=== PATIENT | male | born 1960 | race Caucasian/White ===

== ENCOUNTER 2018-01-24 06:11 | Day surgery (SDC) | payer SELFPAY ==
[~2018-01-24] VITALS: Ht 188 cm; Wt 95.5 kg
[2018-01-24] VITALS (11 sets, daily range): BP systolic 77–119; BP diastolic 23–92; PULSE 51–119; TEMP 97.7
[2018-01-24] MEDS ORDERED: LOPRESSOR 225 MG/TAB PO (06:40)
[2018-01-24] MEDS ORDERED: ASPIRIN 81M81 MG/TA2 PO (06:40)
[2018-01-24] MEDS ORDERED: MULTI VITAMINS1 TAB PO (06:41)
[2018-01-24] MEDS ORDERED: XARELTO20 MG PO (06:41)
[2018-01-24] MEDS ORDERED: PROBIOTIC FORMU1 CAP PO (06:41)
[2018-01-24 07:29] LABS: POTASSIUM 4.9 mmol/L (3.4-5.0)
[2018-01-24 07:50] LABS: PROTHROMBIN TIME 22.9 SECONDS (9.7-12.8)
[2018-01-24 08:04] LABS: THYROID STIMULATING HORMONE 3.46 uIU/mL (0.465-4.680)
== END 2018-01-24 12:36 | disposition home or self-care (01) ==
LOC: COL.CAR 06:11
PROVIDERS: Internal Medicine Interventional Cardiology
DX: I48.0 Paroxysmal atrial fibrillation (principal); I48.92 Unspecified atrial flutter; I34.0 Nonrheumatic mitral (valve) insufficiency; I10 Essential (primary) hypertension; I83.813 Varicose veins of bilateral lower extremities with pain; I83.893 Varicose veins of bilateral lower extremities with other complications; G47.30 Sleep apnea, unspecified; Z79.01 Long term (current) use of anticoagulants
CPT/HCPCS: G9654; J2250; J2704

== ENCOUNTER 2018-04-11 12:08 | Day surgery (SDC) | payer SELFPAY ==
[~2018-04-11] VITALS: Ht 188.1 cm; Wt 81.8 kg
[~2018-04-11 12:08] MED LIST: ASPIRIN 81M81 MG/TA2 PO; LOPRESSOR 225 MG/TAB PO; MULTI VITAMINS1 TAB PO; PROBIOTIC FORMU1 CAP PO; XARELTO20 MG PO
[2018-04-11 12:58] LABS: INR 1.9 (0.8-3.0); PROTHROMBIN TIME 21.3 SECONDS (9.7-12.8)
[2018-04-11 12:59] LABS: POTASSIUM 5.1 mmol/L (3.4-5.0)
[2018-04-11 13:00] VITALS: BP 130/97; PULSE 103; TEMP 98.2
[2018-04-11 13:34] LABS: THYROID STIMULATING HORMONE 3.15 uIU/mL (0.465-4.680)
[2018-04-11] MEDS ORDERED: PACERONE200 MG PO (14:42)
[2018-04-11 15:10] VITALS: BP 94/58; PULSE 55; TEMP 97.5
[2018-04-11 15:25] VITALS: BP 115/78; PULSE 58
[2018-04-11 15:47] VITALS: BP 113/82; PULSE 57
[2018-04-11 15:55] VITALS: BP 133/88; PULSE 58
[2018-04-11 16:25] VITALS: BP 136/94; PULSE 59
== END 2018-04-11 17:10 | disposition home or self-care (01) ==
LOC: COL.CAR 12:08
PROVIDERS: Internal Medicine Interventional Cardiology
DX: I48.3 Typical atrial flutter (principal); I50.22 Chronic systolic (congestive) heart failure; R20.2 Paresthesia of skin; I10 Essential (primary) hypertension; G47.33 Obstructive sleep apnea (adult) (pediatric); I48.91 Unspecified atrial fibrillation; I34.0 Nonrheumatic mitral (valve) insufficiency
CPT/HCPCS: J2704; J7120

== ENCOUNTER 2020-03-06 10:45 | Day surgery (SDC) | payer MEDICAID ==
[2020-03-06] VITALS (11 sets, daily range): BP systolic 86–135; BP diastolic 39–90; PULSE 40–59; TEMP 98
[~2020-03-06] VITALS: Ht 188 cm; Wt 82.8 kg
[~2020-03-06 10:45] MED LIST changes: -LOPRESSOR 225 MG/TAB PO; +PACERONE100 MG PO; +TOPROL XL 25MG25 MG PO
[2020-03-06] MEDS ORDERED: LIPITOR20 MG PO (11:52)
[2020-03-06] MEDS ORDERED: ZESTRIL2.5 MG PO (11:52)
[2020-03-06 12:12] LABS: HEMOGLOBIN 12.2 g/dl (13.5-18.0); MEAN CELL VOLUME 93 fl (80.0-100.0); MEAN CORPUSCULAR HEMOGLOBIN 30 pg (27.0-31.0); MEAN CORPUSCULAR HGB CONC 32 g/dl (33.0-37.0); MEAN PLATELET VOLUME 10.3 fl (7.4-10.4); PLATELET COUNT 281 K/mm3 (130-400); REDCELL DISTRIBUTION WIDTH-CV 12.8 % (11.5-14.5)
[2020-03-06 12:19] LABS: CALCIUM 8.6 mg/dL (8.4-10.2); CREATININE, serum 1.36 (0.66-1.25); POTASSIUM 4.1 mmol/L (3.4-5.0); PROTHROMBIN TIME 11.6 SECONDS (9.7-12.8)
[2020-03-06 12:22] LABS: PARTIAL THROMBOPLASTIN TIME 32.2 SECONDS (26.0-37.0)
[2020-03-06 12:50] LABS: THYROID STIMULATING HORMONE 1.2 uIU/mL (0.465-4.680)
--- NOTE | 2020-03-06 14:30 | NUR ---
Pt to procedure,report to Jamal Guan.
--- NOTE | 2020-03-06 14:56 | NUR ---
SEE MERGE DOCUMENTATION FOR MEDICATION ADMINISTRATION TIMES AND INTRA/POST PROCEDURE SEDATION ASSESSMENTS.
--- NOTE | 2020-03-06 17:49 | NUR ---
Discharge instructions given to pt.pt verbalizes understanding.
--- NOTE | 2020-03-06 17:57 | NUR ---
Report given to Jamal Egan.
--- NOTE | 2020-03-06 18:31 | NUR ---
REMAINING AIR REMOVED FROM TR BAND. NO BLEEDING, 4X4 AND COBAN APPLIED TO RIGHT RADIAL WRIST. PT TOLERATED INTAKE WITH NO N/V. PT UP AND AMBULATED IN AND AROUND THE UNIT WITH NO COMPLICATIONS. PT VOIDED WITH NO COMPLICATIONS. IV WAS DISCONTINUED WITH CATHETER TIP INTACT, NO PHLEBITIS OR INFILTRATION. PT WAS DISCHARGED VIA AMBULATION WITH THIS RN AT HIS SIDE TO THE CARE OF SIGNIFICANT OTHER IN PRIVATE VEHICLE WITH D/C INSTRUCTIONS AND MONITOR IN HAND.
== END 2020-03-06 18:34 | disposition home or self-care (01) ==
LOC: COL.CAR 10:45
PROVIDERS: Internal Medicine Interventional Cardiology
DX: I25.10 Atherosclerotic heart disease of native coronary artery without angina pectoris (principal); R94.39 Abnormal result of other cardiovascular function study; I48.0 Paroxysmal atrial fibrillation; R00.1 Bradycardia, unspecified; Z79.01 Long term (current) use of anticoagulants; Z79.82 Long term (current) use of aspirin; Z11.59 Encounter for screening for other viral diseases
CPT/HCPCS: C1764; C1769; J1644; J2250; J2704; J3010; J7030; Q9967

== ENCOUNTER 2020-12-01 16:18 | Observation (INO) | payer MEDICAID ==
[~2020-12-01] VITALS: Ht 188 cm; Wt 86.9 kg
[~2020-12-01 16:18] MED LIST changes: -ADULT MULTIVIT1 EACH PO; -CALCIUM 600/VIT1 CA1 PO; -MULTIVITAMIN200 MCG PO; -TIKOSYN0.25 MG PO; -TIKOSYN0.5 MG PO; -VITAMIN D PO
[2020-12-01 18:41] LABS: MAGNESIUM 2.1 mg/dL (1.6-2.3)
[2020-12-01 18:52] LABS: TROPONIN-I < 0.012 ng/mL (0.000-0.035)
[2020-12-01 19:12] VITALS: BP 94/70; PULSE 63; TEMP 98.6
[2020-12-01 23:48] VITALS: BP 121/70; PULSE 62; TEMP 97.7
[2020-12-02 03:33] VITALS: BP 117/74; PULSE 61; TEMP 98.2
--- NOTE | 2020-12-02 06:34 | NUR ---
PATIENT HAD VERY QUIET NIGHT, NO NEEDS EXPRESSED. NPO AFTER MN. NO QUESTIONS
[2020-12-02 06:43] LABS: BASO % 0.6 % (0.0-2.0); EOS # 0.3 (0.0-0.7); EOS % 5.1 % (0-4.0); GRAN # 3.5 (1.4-6.5); GRAN % 52.1 % (42.2-75.2); HEMATOCRIT 37.7 % (42.0-52.0); HEMOGLOBIN 12.1 g/dl (13.5-18.0); LYMPH # 1.9 (1.2-3.4); LYMPH % 28.8 % (20.0-51.0); MEAN CELL VOLUME 92 fl (80.0-100.0); MEAN CORPUSCULAR HEMOGLOBIN 30 pg (27.0-31.0); MEAN CORPUSCULAR HGB CONC 32 g/dl (33.0-37.0); MONO # 0.9 (0.1-0.6); MONO % 13.1 % (1.7-9.3); PLATELET COUNT 255 K/mm3 (130-400); RED BLOOD COUNT 4.09 M/mm3 (4.20-5.60); REDCELL DISTRIBUTION WIDTH-CV 12.8 % (11.5-14.5)
--- NOTE | 2020-12-02 07:00 | NUR ---
resting in bed, bedside shift repeort received from JANENE Leyva
[2020-12-02 07:01] LABS: ALBUMIN 3.7 gm/dL (3.5-5.0); BILIRUBIN,TOTAL 0.5 mg/dL (0.0-1.0); CALCIUM 8.3 mg/dL (8.4-10.2); CREATININE, serum 1.29 (0.66-1.25); POTASSIUM 4.5 mmol/L (3.4-5.0); TOTAL PROTEIN 6.3 gm/dL (6.4-8.2)
--- NOTE | 2020-12-02 07:15 | NUR ---
Assessment as charted. pt is resting in bed. Telemetry is on. AP: 63 HR regular. INT left forearm, no reddness/swelling. pt denies c/o pain.
[2020-12-02 07:18] VITALS: BP 122/81; PULSE 63; TEMP 98.9
--- NOTE | 2020-12-02 09:00 | NUR ---
resting in bed with eyes closed, denies needs
--- NOTE | 2020-12-02 09:15 | NUR ---
JANENE Guan from dental laboratory worker in to see patient, EKG ordered and will notify Dr Delgadillo of results
--- NOTE | 2020-12-02 09:33 | NUR ---
Pt scheduled for GISELA/CV with Dr Delgadillo at 1345; verified with MD by this RN at 0900 via phone. Review of telemetry appears to show pt in Sinus Bradycardia. MD contacted to request order for EKG to confirm. VORB received from . RT contacted to obtain. Will update MD once EKG recorded.
--- NOTE | 2020-12-02 11:17 | NUR ---
Initial visit; Patient thanked Gymnasium Teacher for coming by and stated he is "doing ok." Patient appeared to not want spiritual care at this time.
--- NOTE | 2020-12-02 11:30 | NUR ---
full assessment completed, have reviewed assessment completed by student and in agreement with that assessment, discharge instructions give to patient and significant other and verbalizes understanding
--- NOTE | 2020-12-02 11:50 | NUR ---
discharged ambulatory
--- NOTE | 2020-12-02 13:24 | NUR ---
The patient discharged before this Rice Farmworker could complete intake.
== END 2020-12-02 11:50 | disposition home or self-care (01) ==
LOC: MEDICAL 16:18
PROVIDERS: Nurse Practitioner; ADMIT Internal Medicine Interventional Cardiology
PROC: 5A2204Z Restoration of Cardiac Rhythm, Single (ICD-10-PCS; principal; 2020-12-01)
DX: I48.0 Paroxysmal atrial fibrillation (principal); I24.8 Other forms of acute ischemic heart disease; R07.89 Other chest pain; I10 Essential (primary) hypertension; I25.10 Atherosclerotic heart disease of native coronary artery without angina pectoris; Z95.818 Presence of other cardiac implants and grafts; Z79.899 Other long term (current) drug therapy; Z79.01 Long term (current) use of anticoagulants; Z79.82 Long term (current) use of aspirin
CPT/HCPCS: G0378; J7030

== ENCOUNTER → 2020-12-01 | Outpatient (CLI) | payer MEDICAID ==
[~2020-12-01] MED LIST changes: +ADULT MULTIVIT1 EACH PO; +CALCIUM 600/VIT1 CA1 PO; +LIPITOR20 MG PO; +MULTIVITAMIN200 MCG PO; +TIKOSYN0.25 MG PO; +TIKOSYN0.5 MG PO; +VITAMIN D PO; +ZESTRIL2.5 MG PO
[2020-12-01 13:39] LABS: TROPONIN-I 0.454 ng/mL (0.000-0.035)
== END ==
LOC: ZCOL.LAB 12:03
PROVIDERS: Nurse Practitioner
DX: R07.89 Other chest pain (principal)

== ENCOUNTER 2021-02-23 12:35 | Day surgery (SDC) | payer MEDICAID ==
[2021-02-23] VITALS (11 sets, daily range): BP systolic 101–150; BP diastolic 66–103; PULSE 46–128; TEMP 97.2–98.2
[~2021-02-23] VITALS: Ht 188 cm; Wt 85.2 kg
[2021-02-23] MEDS ORDERED: ADULT MULTIVIT1 EACH PO (12:49)
[2021-02-23 13:09] LABS: HEMATOCRIT 40.5 % (42.0-52.0); HEMOGLOBIN 13.2 g/dl (13.5-18.0); MEAN CELL VOLUME 91 fl (80.0-100.0); MEAN CORPUSCULAR HEMOGLOBIN 30 pg (27.0-31.0); MEAN CORPUSCULAR HGB CONC 33 g/dl (33.0-37.0); MEAN PLATELET VOLUME 10.1 fl (7.4-10.4); PLATELET COUNT 296 K/mm3 (130-400); RED BLOOD COUNT 4.45 M/mm3 (4.20-5.60); REDCELL DISTRIBUTION WIDTH-CV 12.6 % (11.5-14.5)
[2021-02-23 13:17] LABS: PROTHROMBIN TIME 11.4 SECONDS (9.7-12.8)
[2021-02-23 13:19] LABS: CALCIUM 8.7 mg/dL (8.4-10.2); CREATININE, serum 1.15 (0.66-1.25); POTASSIUM 4.7 mmol/L (3.4-5.0)
--- NOTE | 2021-02-23 15:40 | NUR ---
SEE MERGE FOR ALL MEDICATION ADMINISTRATION TIMES, INTRA-PROCEDURAL SEDATION ASSESSMENTS
--- NOTE | 2021-02-23 19:11 | NUR ---
Patient is alert and oriented x 4, VS stable, reports no pain at the moment, had most of his dinner. No nausea or vomiting reported. Dressing in incitions dry and clean. No further needs at the moment. Call ligth within reach.
--- NOTE | 2021-02-23 21:00 | NUR ---
PT IN BED, ALERT AND ORIENTED X4. SL TO LEFT AC. HAS SLING TO LEFT ARM, DRSG TO LEFT CHEST PACEMAKER SITE D/I. DENIES NEED FOR PAIN MEDS AT THIS TIME.
[2021-02-24 00:19] VITALS: BP 128/88; PULSE 62; TEMP 98.5
[2021-02-24 04:21] VITALS: BP 124/85; PULSE 61; TEMP 99
--- NOTE | 2021-02-24 05:24 | NUR ---
PT DENIES NEED FOR PAIN MEDS AT THIS TIME. DRSG TO LEFT CHEST INTACT. WILL DO PACEMAKER DOWNLOAD THIS AM.
[2021-02-24 08:31] VITALS: BP 132/82; PULSE 60; TEMP 99.4
--- NOTE | 2021-02-24 09:00 | NUR ---
Patient is doing well this morning. His is at bedside. Patient had some questions about his activity restrictions, explained the lifting restrictions and not lift arm above head or backwards. He verbalized understanding. He stated he will wear his sling as a reminder. No other changes at this time. Call light within reach.
--- NOTE | 2021-02-24 09:13 | NUR ---
ARMANI met with the patient and his , Emily (ph#[phone]), to discuss discharge plan. The patient lives in [place] with his . He reports independence with ADLs and has a cane and walker available, if needed. The patient's PCP is Dr. Kermit Feliz and he receives his medications from [facility] in [place]. He reports no difficulties obtaining his meds. The patient's DPOA-HC is in EMR and it designates Emily. The patient plans to return home with his upon discharge. No additional needs at this time. *Discharge plan: home with *
--- NOTE | 2021-02-24 10:58 | NUR ---
Initial visit; Patient thanked Airport Skilled Maintenance Supervisor for offering spiritual care and mentioned he would be discharged today. Airport Skilled Maintenance Supervisor offered God's blessings.
[2021-02-24 11:18] VITALS: BP 114/83; PULSE 59; TEMP 98.4
--- NOTE | 2021-02-24 12:00 | NUR ---
Patient is discharging home. Discharge instructions discussed with patient. No questions verbalized. INT discontinued. Discussed shower restrictions. Explained office will call with follow up appointment. Explained how to care for incision. No questions verbalized. Copies of discharge instructions sent with patient. All belongings packed up and sent with patient. 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
== END 2021-02-24 12:15 | disposition home or self-care (01) ==
LOC: COL.CAR 12:35 → SURG 17:01 → COL.CAR 02-24 12:15
PROVIDERS: Internal Medicine Interventional Cardiology
DX: I49.5 Sick sinus syndrome (principal); I48.0 Paroxysmal atrial fibrillation; I10 Essential (primary) hypertension; I87.1 Compression of vein; Z79.01 Long term (current) use of anticoagulants; Z79.82 Long term (current) use of aspirin; Z79.899 Other long term (current) drug therapy
CPT/HCPCS: OP; C1785; C1894; C1898; J0690; J2250; J3010; J7030

== ENCOUNTER 2021-07-01 05:13 | Inpatient (IN) | payer MEDICAID ==
[~2021-07-01] VITALS: Ht 182.9 cm; Wt 79.4 kg
[~2021-07-01 05:13] MED LIST changes: +ADULT MULTIVIT1 EACH PO
--- NOTE | 2021-07-01 10:00 | NUR ---
Patient to room 317. Upon initial assessment patient denied any chest pain, chest tightness, SOA, or dizziness. Heart rate irregular. Radial and pedal pulses +2 bilaterally. Lungs sounds clear. Bowel sound present in all four quadrants. Patient A&O. VSS. IV started in right forearm. Initial EKG recieved. Tele placed on patient. Tikosyn dose administered. Patient told to alert nursing staff if any adverse reactions occur. Medications and allergies reviewed. Admission paperwork completed. Patient denies any further pain discomfort, or needs at this time. Call light in reach. at the bedside.
[2021-07-01 10:01] LABS: CALCIUM 9.4 mg/dL (8.4-10.2); CREATININE, serum 1.09 mg/dL (0.72-1.25); MAGNESIUM 1.9 mg/dL (1.6-2.6); POTASSIUM 4.4 mmol/L (3.5-4.5)
[2021-07-01] MEDS ORDERED: CALCIUM 600/VIT1 CA1 PO (10:25)
[2021-07-01] MEDS ORDERED: MULTIVITAMIN200 MCG PO (10:25)
[2021-07-01] MEDS ORDERED: VITAMIN D PO (10:27)
[2021-07-01 10:30] VITALS: BP 111/64; PULSE 79; TEMP 98
[2021-07-01 15:53] VITALS: BP 106/68; PULSE 61; TEMP 98.5
[2021-07-01 15:54] VITALS: BP 106/68; PULSE 58; TEMP 98.5
--- NOTE | 2021-07-01 17:05 | NUR ---
Patient has had an ok day. Denies any chest pain, chest tightness, SOA, or further needs at this time. at the bedside. VSS. Patient A&O. Call light in reach. Fall precautions in place.
[2021-07-01 18:59] VITALS: BP 127/78; PULSE 75; TEMP 97.6
[2021-07-01 19:00] VITALS: BP 127/78; PULSE 75; TEMP 97.6
--- NOTE | 2021-07-01 20:30 | NUR ---
Initial shift assessment done- denies pain/denies SOB,, Watching some TV, offered a snack tonight- pt did not want-states hes ok. Did call Dr. Segovia who is pest control service technician for cardiology about the QTC of 512 on most recent EKG, he gave order to hold tonights dose. Tele on- afib. Understands to call for assistance to bathroom.
[2021-07-02 00:12] VITALS: BP 133/77; PULSE 79; TEMP 98.7
[2021-07-02 03:59] VITALS: BP 111/73; PULSE 72; TEMP 98.3
[2021-07-02 06:55] LABS: CALCIUM 9.4 mg/dL (8.4-10.2); CREATININE, serum 1.09 mg/dL (0.72-1.25); POTASSIUM 4.2 mmol/L (3.5-4.5)
--- NOTE | 2021-07-02 07:00 | NUR ---
Slept well all night-- tele on- no changes,VSS
[2021-07-02 07:38] VITALS: BP 118/46; PULSE 65; TEMP 97.7
--- NOTE | 2021-07-02 07:45 | NUR ---
CALLED DR. VERA ABOUT ADMINISTRATION OF TIKOSYN, GAVE UPDATED QTC TAKEN THIS MORNING OF 487, ORDERED TO STILL GIVE 500MCG DOSE.
--- NOTE | 2021-07-02 08:30 | NUR ---
PT PLEASANT, DENIES PAIN, SOB, DIZZINESS, OR HEART PALPITATIONS. PT HAS NO COMPLAINTS AT THIS TIME, ATE 100% BREAKFAST, RANAWEERA ORDERED TO GIVE TIKOSYN WITH ALL OTHER MEDS. ASSESSMENT PERFORMED, CALL LIGHT WITHIN REACH, NO OTHER NEEDS
--- NOTE | 2021-07-02 09:08 | NUR ---
SW met with the patient to discuss discharge plan. The patient lives in [place] with his , Emily (ph#[phone]). He reports independence with ADLs and has crutches and a walker. The patient's PCP is Dr. Kermit Feliz and he receives his medications from [facility] in . He reports no difficulties obtaining his meds. The patient's DPOA-HC is in EMR and it designates his . The patient plans to return home with his upon discharge. No additional needs at this time. *Discharge plan: home with *
[2021-07-02 12:20] VITALS: BP 118/76; PULSE 97; TEMP 98.1
--- NOTE | 2021-07-02 12:58 | NUR ---
LUNA MAGALLON NOTIFIED OF QTC > 500 AFTER 2ND DOSE.
--- NOTE | 2021-07-02 14:13 | NUR ---
Primary nurse was assisted with [phone] patient care by [facility] [employer] student Raven White and [employer] instructor Debra Pedro MSN, RN
[2021-07-02 15:17] VITALS: BP 120/82; PULSE 83; TEMP 98.2
--- NOTE | 2021-07-02 15:21 | NUR ---
NAUN CARRASCO ORDERED TO GIVE TIKOSYN ORDERED FOR NIGHT TIME DOSE DESPITE QTC > 500
--- NOTE | 2021-07-02 17:17 | NUR ---
PT PLEASANT, AOX4, UNEVENTFUL SHIFT, ORDERED TO GIVE 2100 DOSE OF TIKOSYN DESPITE INC QTC, NO OTHER NEEDS
[2021-07-02 20:38] VITALS: BP 147/65; PULSE 69; TEMP 98.4
[2021-07-03] VITALS (7 sets, daily range): BP systolic 117–123; BP diastolic 74–99; PULSE 57–80; TEMP 97.8–98.6
--- NOTE | 2021-07-03 05:53 | NUR ---
ALL NEEDS MET THIS NIGHT. PT DENIES S/S RELATED TO TIKOSYN INITIATION. PT SLEPT INTERMITTENTLY THROUGH OUT NIGHT. CALL LIGHT WITHIN REACH.
[2021-07-03 08:11] LABS: CALCIUM 9.3 mg/dL (8.4-10.2); CREATININE, serum 1.03 mg/dL (0.72-1.25); MAGNESIUM 1.9 mg/dL (1.6-2.6); POTASSIUM 4.4 mmol/L (3.5-4.5)
--- NOTE | 2021-07-03 08:17 | NUR ---
PT PLEASANT AOX4, DENIES PAIN, ASSESSMENT PERFORMED, URINAL EMPTIED, FRESH ICE WATER BROUGHT IN, INCISION SCARS ON L LEG PRESENT AT KNEE , NO OTHER NEEDS
--- NOTE | 2021-07-03 12:47 | NUR ---
Patient is sitting upright in bed. He is waiting on his lunch to arrive. He denies any pain at this time, and has his call button nearby. Patient states he has no needs or concerns at this time.
--- NOTE | 2021-07-03 14:36 | NUR ---
Primary nurse was assisted with [phone] patient care by [facility] student Raven White and [facility] [employer] instructor Debra Pedro MSN, RN
--- NOTE | 2021-07-03 17:14 | NUR ---
uneventful shift, pt pleasant, vitals stable, eager for discharge tomorrow. no other needs
[2021-07-04 02:59] VITALS: BP 126/76; PULSE 70; TEMP 97.9
--- NOTE | 2021-07-04 04:54 | NUR ---
PT HAD UNEVENTFUL NIGHT THIS NIGHT. URINAL EMPTIED. I&O NOTED AND RECORDED. EKG ORDERS INPUT AND COMPLETE. QTC 439 WITH NON SPECIFIC T WAVE ABNORMALITY. PT DENIES S/S RELATED TO TIKOSYN INITATION. ALL QUESTIONS/CONCERNS ANSWERED. ALL NEEDS MET THIS NIGHT. CALL LIGHT WITHIN REACH.
--- NOTE | 2021-07-04 07:18 | NUR ---
RECEIVED REPORT FROM JANENE CHAVIS. PT AWAKE/ALERT. DENIES PAIN. NO NEEDS AT THIS TIME. CALL MORRISON IN REACH
[2021-07-04 07:51] VITALS: BP 134/93; PULSE 74; TEMP 97.5
[2021-07-04] MEDS ORDERED: TIKOSYN0.5 MG PO ×2 (09:27)
[2021-07-04 09:55] LABS: CREATININE, serum 0.99 mg/dL (0.72-1.25); MAGNESIUM 1.9 mg/dL (1.6-2.6); POTASSIUM 5.1 mmol/L (3.5-4.5)
[2021-07-04 13:03] VITALS: BP 144/98; PULSE 87; TEMP 98.6
[2021-07-04 16:41] VITALS: BP 124/75; PULSE 77; TEMP 98.3
--- NOTE | 2021-07-04 17:45 | NUR ---
PT WAS SUPPOSED TO D/C TODAY, BUT STAY WAS PROLONGED DUE TO ELEVATED QTC. PT RESTING IN BED. DENIES PAIN. NO NEEDS AT THIS TIME. CALL MORRISON IN REACH
[2021-07-04 19:46] VITALS: BP 126/84; PULSE 81; TEMP 98.7
[2021-07-04 23:27] VITALS: BP 99/67; PULSE 82; TEMP 98.2
[2021-07-05 03:59] VITALS: BP 114/78; PULSE 76; TEMP 98
--- NOTE | 2021-07-05 06:18 | NUR ---
PT HAD UNEVENTFUL NIGHT. ALL NEEDS MET THIS NIGHT. PT VERBALIZES UNDERSTANDING OF TIKOSYN HOLD THIS NIGHT AND COMMENCEMENT THIS MORNING WITH DOSAGE ADJUSTMENT. CALL LIGHT WITHIN REACH.
--- NOTE | 2021-07-05 06:55 | NUR ---
REPORT RECEIVED FROM JANENE CHAVIS. PT AWAKE/ALERT IN BED. LAB IN ROOM. PT DENIES PAIN. NO NEEDS AT THIS TIME. CALL MORRISON IN REACH
[2021-07-05 07:40] VITALS: BP 139/96; PULSE 81; TEMP 98.7
[2021-07-05 08:27] LABS: CALCIUM 9.4 mg/dL (8.4-10.2); CREATININE, serum 1.01 mg/dL (0.72-1.25); MAGNESIUM 1.7 mg/dL (1.6-2.6); POTASSIUM 4.5 mmol/L (3.5-4.5)
[2021-07-05] MEDS ORDERED: TIKOSYN0.25 MG PO (11:09)
--- NOTE | 2021-07-05 12:06 | NUR ---
DISCHARGE INSTRUCTIONS REVIEWED WITH PATIENT. QUESTIONS INVITED AND ANSWERED. IV AND TELE REMOVED. [employer] EMPLOYEE WALKED PT TO CAR
== END 2021-07-05 12:07 | disposition home or self-care (01) | DRG 310 ==
LOC: MEDICAL 05:13
PROVIDERS: ADMIT Internal Medicine Interventional Cardiology
DX: I48.0 Paroxysmal atrial fibrillation (principal); Z95.0 Presence of cardiac pacemaker; I10 Essential (primary) hypertension; E78.5 Hyperlipidemia, unspecified; Z79.01 Long term (current) use of anticoagulants

== ENCOUNTER 2022-02-18 07:36 | Day surgery (SDC) | payer MEDICAID ==
[2022-02-18] VITALS (7 sets, daily range): BP systolic 83–119; BP diastolic 64–94; PULSE 60–97; TEMP 98.1
[~2022-02-18] VITALS: Ht 185.4 cm; Wt 81.4 kg
[~2022-02-18 07:36] MED LIST changes: +CALCIUM 600/VIT1 CA1 PO; +MULTIVITAMIN200 MCG PO; +TIKOSYN0.25 MG PO; +TIKOSYN0.5 MG PO; +VITAMIN D PO
[2022-02-18] MEDS ORDERED: PACERONE400 MG PO (07:48)
[2022-02-18] MEDS ORDERED: VITAMINC1000TA PO (07:49)
[2022-02-18] MEDS ORDERED: VITAMIN D31000 I1 PO (07:49)
[2022-02-18] MEDS ORDERED: MULTIVITAMIN200 MCG PO (07:51)
[2022-02-18] MEDS ORDERED: CALCIUM 600 PLU1 TAB PO (08:04)
[2022-02-18 09:35] LABS: POTASSIUM 4.6 mmol/L (3.5-4.5)
[2022-02-18 09:52] LABS: INR 1.3 (0.8-3.0)
[2022-02-18 10:02] LABS: THYROID STIMULATING HORMONE 3.215 uIU/mL (0.350-4.940)
--- NOTE | 2022-02-18 13:20 | NUR ---
DC instructions reviewed with pt and . Both express understanding. Pt has had occasional nonproductive cough since procedure. Lungs remain clear. Pt is encouraged to push fluids, cough to clear secretions and contact office with he develops new symptoms like shortness of breath, productive cough, fevers. He is steady on feet in room. INT DC'd. He has tolerated PO fluids without issue, and has denied desire to eat stating he will at home. SAMMI Mario in to speak with pt and prior to departure. Pt will be assisted out by wheelchair.
--- NOTE | 2022-02-18 13:30 | NUR ---
Pt assisted out to 's car by wheelchair with plan to go by cardiology office for sample supply of jardiance.
== END 2022-02-18 13:30 | disposition home or self-care (01) ==
LOC: COL.CAR 07:36
PROVIDERS: Internal Medicine Interventional Cardiology
DX: I48.0 Paroxysmal atrial fibrillation (principal); Z79.01 Long term (current) use of anticoagulants; I34.0 Nonrheumatic mitral (valve) insufficiency; Z95.0 Presence of cardiac pacemaker
CPT/HCPCS: J2704; J7120